=== PATIENT | male | born 1950 | race Caucasian/White ===

== ENCOUNTER 2017-09-17 06:03 | Day surgery (SDC) | payer MEDICARE ==
[2017-09-16 14:04] VITALS: BMI 30.6
--- NOTE | 2017-09-16 23:22 | HP ---
DATE OF ADMISSION: 09/17/2017 HISTORY OF PRESENT ILLNESS: This is a 66-year-old male, comes for colonoscopy, previous h istory of colon polyp. At the present time, Mr. Maldonado has no specific GI symptoms. No history of a bdominal pain or hematochezia. ALLERGIES: None. MEDICAL ILLNESSES: 1. Hypertension. 2. Gout. 3. Osteoarthritis. 4. Diabetes mellitus. 5. Hyperlipidemia. 6. Depression. 7. Sleep apnea. PHYSICAL EXAMINATION: VITAL SIGNS: Pulse is 70, blood pressure 130/80. HEENT: Conjunctivae clear. CARDIOVASCULAR: First and second heart sounds normal. LUNGS: Clear to auscultation. ABDOMEN: Soft to palpate. No organomegaly. No tenderness. No masses. EXTREMITIES: Reveal no edema. ADMITTING DIAGNOSIS: A 66-year-old male with history of colon polyp. He comes for a [facility] colonoscopy.
[2017-09-17] MEDS ORDERED: Lidocaine 1% PF 5 ML VIAL ONE (08:16)
[2017-09-17] MEDS ORDERED: Propofol 200 MG/20 ML VIAL ONE (08:16)
--- NOTE | 2017-09-17 10:57 | OP ---
DATE OF PROCEDURE: 09/17/2017 SURGEON: Daly Kendrick M.D. OPERATIVE PROCEDURE: Colonoscopy with polypectomy. PREOPERATIVE DIAGNOSIS: A 66-year-old male with history of colon polyp, undergoing follow up colonoscopy. POSTOPERATIVE DIAGNOSES: 1. Sessile ascending colon polyp close to the cecum. 1. Sessile hepatic flexure polyp. 2. Mild sigmoid diverticular disease. PROCEDURE NOTE: The patient was placed on his left lateral position and was given sedation [facility]. A rectal exam was done before the scope was advanced into the rectum. No lesions were felt on rectal exam. A Pentax video colonoscope was introduced into the rectum and advanced a ll the way into the cecum. The prep was excellent. The appendiceal orifice, ileocecal valve, and c ecum, no pathology seen. A sessile ascending colon polyp removed with snare cautery with good hemos tasis. Another sessile polyp of hepatic flexure removed with snare cautery. The transverse colon, descending colon, and sigmoid colon, no lesions. Over the sigmoid colon did show mild diverticulos is. Retroflexion of the scope in the rectum showed no pathology. DISCHARGE PLANNING: This is a 66-year-old male who came in for colonoscopy because of his tory of colon polyp. He underwent colonoscopy and polypectomy x2. DISCHARGE RECOMMENDATIONS: 1. The patient was advised to call me if he develops abdominal pain, hematochezia or fever. 2. In the absence of any other symptoms to come back to me in 2 weeks.
== END 2017-09-17 09:43 | disposition home or self-care (01) ==
LOC: SDC 06:03
PROVIDERS: ATTEND Internal Medicine Gastroenterology
PROC: 0DBK8ZX Excision of Ascending Colon, Via Natural or Artificial Opening Endoscopic, Diagnostic (ICD-10-PCS; principal; 2017-09-17)
PROC: 0DBL8ZX Excision of Transverse Colon, Via Natural or Artificial Opening Endoscopic, Diagnostic (ICD-10-PCS; 2017-09-17)
DX: Z12.11 Encounter for screening for malignant neoplasm of colon (principal); D12.2 Benign neoplasm of ascending colon; D12.3 Benign neoplasm of transverse colon; K57.30 Diverticulosis of large intestine without perforation or abscess without bleeding; I10 Essential (primary) hypertension; M10.9 Gout, unspecified; M19.90 Unspecified osteoarthritis, unspecified site; E11.9 Type 2 diabetes mellitus without complications; E78.5 Hyperlipidemia, unspecified; G47.30 Sleep apnea, unspecified; F32.9 Major depressive disorder, single episode, unspecified; Z79.84 Long term (current) use of oral hypoglycemic drugs; Z79.899 Other long term (current) drug therapy; Z90.49 Acquired absence of other specified parts of digestive tract; Z98.890 Other specified postprocedural states; Z87.19 Personal history of other diseases of the digestive system
CPT/HCPCS: 88305; J2001; J2704

== ENCOUNTER 2018-11-26 10:20 | Outpatient (CLI) | payer MEDICARE ==
--- NOTE | 2018-11-26 12:41 | RAD ---
CHEST PA AND LATERAL: 11/26/2018 10:25 a.m. HISTORY: Preoperative evaluation for back surgery. FINDINGS: The heart size is normal. The lungs are well expanded without focal areas of consolidation, pneumoth oraces, or pleural effusions. There are degenerative changes in the spine. IMPRESSION: No radiographic evidence of acute cardiopulmonary process. POS: CLYDE
== END 2018-11-26 10:21 | disposition home or self-care (01) ==
LOC: SCSRAD 10:20
PROVIDERS: ATTEND Family Medicine
DX: Z01.818 Encounter for other preprocedural examination (principal); M48.061 Spinal stenosis, lumbar region without neurogenic claudication
CPT/HCPCS: 71046

== ENCOUNTER 2018-12-09 09:15 | Outpatient (CLI) | payer MEDICARE ==
[2018-12-09 11:13] LABS: Hemoglobin 13.2 g/dL (14.0-18.0); Mean Corpuscular HGB CONC 33.8 g/dL (32.0-36.0); Mean Corpuscular Hemoglobin 28.2 pg (27.0-31.0); Mean Corpuscular Volume 83.5 fL (78.0-98.0); Mean Platelet Volume 8.5 fL (7.4-10.4); Platelet Count 209 thou/uL (130-400); RBC Distribution Width 13.4 % (11.5-14.5); Red Blood Cell (RBC) Count 4.68 mill/uL (4.70-6.10); White Blood Cell (WBC) Count 4.4 thou/uL (4.8-10.8)
[2018-12-09 11:42] LABS: Anion Gap 13 mmol/L (10-20); BUN (Urea Nitrogen) 17 mg/dL (8.4-25.7); Calc. Creatinine Clearance 0 mL/min (70-130); Calcium 10.1 mg/dL (7.8-10.44); Carbon Dioxide 21 mmol/L (23-31); Chloride 108 mmol/L (98-107); Estimated GFR-MDRD 81; Glucose 138 mg/dL (80-115); Potassium 4.4 mmol/L (3.5-5.1); Sodium 138 mmol/L (136-145)
== END 2018-12-09 09:16 | disposition home or self-care (01) ==
LOC: LABBT 09:15
PROVIDERS: ATTEND Neurological Surgery
DX: Z01.812 Encounter for preprocedural laboratory examination (principal); M43.16 Spondylolisthesis, lumbar region
CPT/HCPCS: 80048; 85027

== ENCOUNTER 2018-12-10 09:14 | Inpatient (IN) | payer MEDICARE ==
[2018-12-09 10:12] VITALS: BMI 30.4
[2018-12-22] MEDS ORDERED: Sodium Chloride 0.9% 10 ML ONE (11:16)
[2018-12-22] MEDS ORDERED: Fentanyl 100 MCG/2 ML VIAL ONE ×3 (11:30→13:31)
[2018-12-22] MEDS ORDERED: Meperidine HCl/PF 25 MG/ML VIAL SLOW IVP PRN (12:38)
[2018-12-22] MEDS ORDERED: Promethazine HCl 25 MG/ML VIAL SLOW IVP PRN ×2 (12:38→14:09)
[2018-12-22] MEDS ORDERED: HYDROmorphone 2 MG/ML VIAL SLOW IVP PRN (12:38)
[2018-12-22] MEDS ORDERED: Promethazine HCl 25 MG/ML VIAL IM PRN ×3 (12:38→14:09)
[2018-12-22] MEDS ORDERED: tiZANidine HCl 4 MG TAB PO PRN (13:42)
[2018-12-22] MEDS ORDERED: Mag-Al 1200 mg/1200 mg/30 ML UDCUP PO PRN (13:42)
[2018-12-22] MEDS ORDERED: diphenhydrAMINE 50 MG/ML VIAL IVP PRN (13:42)
[2018-12-22] MEDS ORDERED: HYDROcodone/Acetaminophen 10/325 mg Tablet PO PRN ×2 (13:42)
[2018-12-22] MEDS ORDERED: Morphine 4 MG/ML VIAL SLOW IVP PRN ×2 (13:42→13:43)
[2018-12-22] MEDS ORDERED: Milk Of Magnesia 30 ML UDCUP PO PRN (13:42)
[2018-12-22] MEDS ORDERED: Promethazine HCl 12.5 MG SUPP PR PRN (13:42)
[2018-12-22] MEDS ORDERED: Promethazine 25 MG TAB PO PRN (13:42)
[2018-12-22] MEDS ORDERED: traMADol HCl 50 MG TAB PO PRN ×2 (13:42)
[2018-12-22] MEDS ORDERED: diphenhydrAMINE 25 MG CAP PO PRN (13:42)
[2018-12-22] MEDS ORDERED: Ondansetron PF 4 MG/2 ML Vial IVP PRN (13:44)
[2018-12-22] MEDS ORDERED: HYDROmorphone 2 MG/ML VIAL ONE (13:52)
[2018-12-22] MEDS ORDERED: Ondansetron HCl/PF 4 MG/2 ML Vial IVP PRN (14:09)
[2018-12-22] MEDS ORDERED: Glycopyrrolate 0.2 MG/ML 5 ML SYRINGE ONE (15:15)
[2018-12-22] MEDS ORDERED: PHENYLEPHRINE-NS 100 MCG/ML 10 ML SYRINGE ONE (15:15)
[2018-12-22] MEDS ORDERED: Lidocaine 1% PF 5 ML VIAL ONE (15:15)
[2018-12-22] MEDS ORDERED: Ketorolac Tromethamine 30 MG/ML VIAL ONE (15:15)
[2018-12-22] MEDS ORDERED: Metoclopramide HCl 10 MG/2 ML VIAL ONE (15:15)
[2018-12-22] MEDS ORDERED: Rocuronium Bromide 10 MG/ML (10ML VIAL) ONE (15:15)
[2018-12-22] MEDS ORDERED: ePHEDrine 50 MG/ML VIAL ONE (15:15)
[2018-12-22] MEDS ORDERED: diphenhydrAMINE 50 MG/ML VIAL ONE (15:15)
[2018-12-22] MEDS ORDERED: Ondansetron PF 4 MG/2 ML Vial ONE (15:15)
[2018-12-22] MEDS ORDERED: PROPOFOL 200 MG/20 ML VIAL ONE (15:15)
--- NOTE | 2018-12-22 15:49 | OP ---
DATE OF PROCEDURE: 12/22/2018 VIDEO TAPE DUPLICATOR: Frank Barbosa PA-C. PROCEDURE PERFORMED: Left L4-L5 laminectomy, facetectomy, foraminotomy, interbody arthrodesis, intervertebral biomechanical device, local morselized autograft, demineralized bone matrix, posterolateral arthrodesis, L4-L5, pedicle screw instrumentation. DESCRIPTION OF PROCEDURE: The patient was brought to the operating room and intubated. He was rolled in a prone position on gel-filled chest rolls. The previous incision was reopened and the L4-L5 area was identified. There was copious scar in this region. After bilateral exposure, we performed left L4-L5 facetectomy, laminectomy, and foraminotomy completely decompressing left L4 within the neuro foramen and far-lateral disk herniation was identified here. After complete decompression, the disk space was incised and debrided and the bony endplates decorticated for the purpose of arthrodesis. An appropriate-sized intervertebral biomechanical PEEK device was then brought into the field, filled with demineralized bone matrix and local morselized autograft, and tapped in place securely at L4-L5. Next, pedicle screws were placed in the left L4 and left L5 using lateral fluoroscopic guidance and the position was confirmed by x-ray. The dana was secured between the screws connected by nuts, which were final tightened. The wound was then extensively irrigated and maximum hemostasis was secured. Combination of demineralized bone matrix and local morselized autograft was laid over the right lamina and posterolateral surfaces for the purpose of arthrodesis. Vancomycin powder was applied and the wound was then closed in anatomic layers. Job ID: [id number]
[2018-12-22] MEDS ORDERED: Nitroglycerin 0.4 MG TAB (25 Tab Bottle) SL PRN (17:47)
[2018-12-22] MEDS ORDERED: Dextrose 5% in Water 1,000 ML IV PRN (17:48)
[2018-12-22] MEDS ORDERED: Dextrose 50% Abboject 50 ML SYRINGE SLOW IVP PRN (17:48)
[2018-12-22] MEDS ORDERED: HumaLOG 300 UNITS/3 ML VIAL SC PRN ×2 (17:48)
[2018-12-22] MEDS: CEFAZOLIN 2 GM in Premix Bag 1 BAG IVPB SCH (17:50)
[2018-12-22] MEDS: Sodium Chloride 0.9% 1,000 ML IV SCH (17:53)
[2018-12-22] MEDS: Famotidine 20 MG TAB PO SCH (20:51)
[2018-12-22] MEDS: metFORMIN XR 500 MG TAB PO SCH (20:51)
[2018-12-22] MEDS ORDERED: Atorvastatin Calcium 20 MG TAB PO SCH (21:00)
--- NOTE | 2018-12-22 21:02 | CON ---
DATE OF CONSULTATION: PRIMARY CARE PHYSICIAN: Johnson Vital MD PRIMARY TEAM: Neurosurgery, Dr. Pacheco. REASON FOR CONSULTATION: Medical management. HISTORY OF PRESENT ILLNESS: This is a 68-year-old white male with known severe degenerative disk disease, came in for decompression with a lumbar fusion by Dr. Pacheco. He did have some allergy symptoms on his way and this morning with some congestion, stuffy nose, and sneezing, these are all cleared up. He has no other complaints. He does have chronic back pain and has some knee pain, and is supposed to get a left knee replacement after he recovers from the surgery. PAST MEDICAL HISTORY: 1. Labile blood pressure, no longer on any blood pressure medications. 2. Hyperlipidemia. 3. Diabetes mellitus type 2, controlled with metformin and diet. 4. Gout. 5. Diverticulosis of the colon. 6. Cervical spondylosis. PAST SURGICAL HISTORY: 1. Right knee replacement. 2. Cervical fusion and low back surgery x2 each. 3. Cataract surgery. 4. Tonsillectomy. 5. Appendectomy. 6. Birthmark removal. 7. Carpal tunnel surgery. 8. Vasectomy. 9. Heart catheterization, echo, and carotid Doppler. 10. Right hand surgery. 11. Sinus surgery. 12. Colonoscopy with polypectomy. SOCIAL HISTORY: The patient quit smoking in 1984. No alcohol or illicit drug use. He is , lives with his . ALLERGIES: NO KNOWN DRUG ALLERGIES. FAMILY HISTORY: Father at 67 years old of a lung cancer. Mother at 88 years old of cardiovascular disease. MEDICATIONS: 1. Nitroglycerin as needed. 2. Atorvastatin 20 mg at night. 3. Metformin 1000 mg twice a day. 4. Lexapro 20 mg daily. 5. Fenofibrate 67 mg daily. 6. Glimepiride 4 mg daily. 7. Romney as needed. REVIEW OF SYSTEMS: CONSTITUTIONAL: No fevers, no chills. EYES: No double vision or blurred vision. ENT: See HPI. No sore throat. CARDIOVASCULAR: No chest pain. No palpitations or racing heart. PULMONARY: He had some coughing, wheezing with the sneezing this morning, this is resolved. No chest tightness or trouble breathing. GASTROINTESTINAL: No abdominal pain. No nausea or vomiting. No diarrhea or constipation. GENITOURINARY: No dysuria or hematuria. MUSCULOSKELETAL: He has chronic low back pain and has chronic left knee pain. SKIN: No rashes or other lesions noted. NEUROLOGIC: He has had some tingling in his feet. This is chronic from his diabetes. PHYSICAL EXAMINATION: VITAL SIGNS: Blood pressure 128/73, pulse 72, respirations 18, O2 saturation 95 % on room air, temperature 98.2. GENERAL: This is a well-developed, obese white male, in no acute distress. HEENT: Pupils are equal, round, and reactive to light. Oropharynx is clear without lesions, erythema, or exudate. NECK: Supple. No lymphadenopathy. No thyroid nodules or enlargement. No JVD. HEART: Regular rate and rhythm. No murmurs, rubs, or gallops. LUNGS: Clear to auscultation bilaterally. No wheezes, crackles, rhonchi. ABDOMEN: Soft, nontender to palpation. Normoactive bowel sounds. No hepatosplenomegaly or other masses. EXTREMITIES: No clubbing, cyanosis, or edema. SKIN: No rashes or other lesions noted. NEUROLOGIC: He has intact sensation and strength in all extremities. No facial droop. LABORATORY DATA: Lab done preoperatively a week and a half ago, shows a white blood cell count of 4.4, hemoglobin 13.2, hematocrit 39.1, platelet count 209. Basic metabolic panel with a chloride of 108, carbon dioxide 21, glucose 138. The rest is normal. ASSESSMENT: 1. Degenerative disk disease of the lumbar spine status post lumbar decompression and fusion, doing well postoperatively. 2. Labile blood pressure, not requiring blood pressure medications at home. We will monitor closely. Currently, blood pressure is normal. 3. Diabetes mellitus type 2. We will resume patient's oral hypoglycemics and check a fingerstick blood sugar before meals and at bedtime, and we will put him on low insulin sliding scale. We will change his diet to a controlled carbohydrate diet. 4. Gastrointestinal prophylaxis. We will put the patient on Pepcid twice a day. 5. Deep venous thrombosis prophylaxis per Neurosurgery. 6. Code status. I did discuss this with the patient, he is a full code. Should he be incapacitated, his medical decision maker would be his . Her name is Pedro Maldonado. Job ID: [id number] MTDD
[2018-12-23] MEDS: CEFAZOLIN 2 GM in Premix Bag 1 BAG IVPB SCH (01:20)
[2018-12-23] MEDS: Sodium Chloride 0.9% 1,000 ML IV SCH (06:28)
[2018-12-23] MEDS ORDERED: Glimepiride 4 MG TAB PO SCH (07:30)
[2018-12-23] MEDS ORDERED: Escitalopram Oxalate 20 mg Tablet PO SCH (09:00)
[2018-12-23] MEDS ORDERED: Fenofibrate 48 MG TAB PO SCH (09:00)
[2018-12-23] MEDS: metFORMIN XR 500 MG TAB PO SCH (09:04)
[2018-12-23] MEDS: Famotidine 20 MG TAB PO SCH ×2 (09:04→09:05)
--- NOTE | 2018-12-23 09:07 | PDOC.PN ---
- Subjective Encounter Start Date: 12/23/18 - Objective Resuscitation Status - Order Detail: 12/22/18 17:49 Resuscitation Status Routine Resuscitation Status: FULL: Full Resuscitation Discussed with: Patient NATHALIA Reviewed: Yes Vital Signs & Weight: Vital Signs (12 hours) Temp Pulse Resp BP Pulse Ox 12/23/18 07:37 98 F 77 22 H 141/80 H 99 12/23/18 03:52 97.5 F L 64 16 116/71 99 12/22/18 23:37 97.5 F L 73 16 124/76 96 Weight Weight 250 lb I&O: 12/22/18 12/23/18 12/24/18 06:59 06:59 06:59 Intake Total 1000 Output Total 1200 Balance -200 Additional Labs: Accuchecks 12/23/18 12/22/18 05:47 20:36 POC Glucose 113 H 119 H Dx/Plan (1) Degenerative joint disease (DJD) of lumbar spine Code(s): M47.816 - SPONDYLOSIS W/O MYELOPATHY OR RADICULOPATHY, LUMBAR REGION Status: Acute Comment: s/p decompression and fusion (2) Labile blood pressure Code(s): R09.89 - OTH SYMPTOMS AND SIGNS INVOLVING THE CIRC AND RESP SYSTEMS Status: Chronic Comment: well controlled (3) Diabetes mellitus type 2 in obese Code(s): E11.69 - TYPE 2 DIABETES MELLITUS WITH OTHER SPECIFIED COMPLICATION; E66.9 - OBESITY, UNSPECIFIED Status: Chronic Comment: well controlled on home meds - Plan cont current plan of care, PT/OT disposition per neurosurgery * .
[2018-12-23 11:38] VITALS: BP 144/78; TEMP 98.1
--- NOTE | 2018-12-23 11:53 | DIS ---
DATE OF ADMISSION: 12/22/2018 DATE OF DISCHARGE: 12/23/2018 HISTORY OF PRESENT ILLNESS: The patient is a 68-year-old male, status post L4-L5 decompression and fusion. Following the procedure, he was transitioned to the Med/Surg floor where his pain was well controlled with p.o. medications, he was tolerating a regular diet, and voiding appropriately. He has been ambulating easily throughout the department. He is awake, alert, in no acute distress. He has free active range of motion of all extremities, 5/5 strength throughout. Sensation intact to light touch. Dressing is dry. Incision is intact. We will plan to dismiss the patient to home. I discussed home care precautions. We will follow up in 2 weeks. Job ID: [id number]
== END 2018-12-23 11:33 | disposition home or self-care (01) | DRG 460 ==
LOC: SURG A 12-22 08:01 → SURG B 12-22 16:09 → EDSTATUS 12-22 09:53
PROVIDERS: ADMIT Neurological Surgery; ATTEND Neurological Surgery
PROC: 0SG00AJ Fusion of Lumbar Vertebral Joint with Interbody Fusion Device, Posterior Approach, Anterior Column, Open Approach (ICD-10-PCS; principal; 2018-12-22)
DX: M51.36 Other intervertebral disc degeneration, lumbar region (principal); E78.5 Hyperlipidemia, unspecified; E11.9 Type 2 diabetes mellitus without complications; M10.9 Gout, unspecified; Z96.651 Presence of right artificial knee joint; Z98.1 Arthrodesis status; Z98.49 Cataract extraction status, unspecified eye; Z90.49 Acquired absence of other specified parts of digestive tract; Z98.52 Vasectomy status; Z98.890 Other specified postprocedural states; Z87.891 Personal history of nicotine dependence; Z79.84 Long term (current) use of oral hypoglycemic drugs
CPT/HCPCS: 36416; 76000; C1713; C1768; J0131; J1170; J1200; J1885; J2001; J2405; J2704; J2765; J3010; J3370; J3490

== ENCOUNTER 2019-01-07 15:45 | Outpatient (CLI) | payer MEDICARE ==
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
== END 2019-01-07 15:46 | disposition home or self-care (01) ==
LOC: TBSIIMAG 15:45
PROVIDERS: ATTEND Neurological Surgery
DX: M54.9 Dorsalgia, unspecified (principal); M43.16 Spondylolisthesis, lumbar region; Z98.890 Other specified postprocedural states
CPT/HCPCS: 72100

== ENCOUNTER 2019-02-25 13:37 | Outpatient (CLI) | payer MEDICARE ==
--- NOTE | 2019-02-25 13:59 | RAD ---
Exam: 2 views lumbar spine COMPARISON: 01/07/2019 HISTORY: follow-up lumbar fusion surgery FINDINGS: Redemonstration of unilateral left-sided transpedicular screw at L4 and L5. No perihardware lucency. There is a disc prosthesis at L4-L5. Stable 6.7 mm of anterolisthesis of L4 upon L5. Stable loss of disc space height and osteophyte formation. IMPRESSION: Stable lumbar fusion.
== END 2019-02-25 13:38 | disposition home or self-care (01) ==
LOC: TBSIIMAG 13:37
PROVIDERS: ATTEND Neurological Surgery
DX: M54.16 Radiculopathy, lumbar region (principal); Z98.1 Arthrodesis status
CPT/HCPCS: 72100

== ENCOUNTER 2019-05-19 15:50 | Outpatient (CLI) | payer MEDICARE ==
--- NOTE | 2019-05-19 16:20 | RAD ---
LUMBAR SPINE TWO VIEW: 05/19/18 HISTORY: M54.16 COMPARISON: Radiograph 02/25/19. FINDINGS: Similar appearance to the left unilateral posterior spinal fusion hardware L4-5. Anterolisthesis is u nchanged. No migration of the discectomy cage. No acute superimposed fracture or malalignment. Multilevel degenerative disc space height loss. Multi level laminectomies. IMPRESSION: Unchanged postoperative appearance. POS: HOME
== END 2019-05-19 15:51 | disposition home or self-care (01) ==
LOC: TBSIIMAG 15:50
PROVIDERS: ATTEND Neurological Surgery
DX: M54.16 Radiculopathy, lumbar region (principal); Z98.1 Arthrodesis status
CPT/HCPCS: 72100

== ENCOUNTER 2020-10-03 10:13 | Outpatient (CLI) | payer MEDICARE | END 2020-10-03 10:14 | disposition home or self-care (01) | LOC: DTY/OP 10:13 | PROVIDERS: ATTEND Family Medicine | DX: E11.9 Type 2 diabetes mellitus without complications (principal) | CPT/HCPCS: 97802 ==

== ENCOUNTER 2021-01-02 18:03 | Emergency (ER) | payer MEDICARE ==
[~2021-01-02 18:03] MED LIST: Iopamidol-370 76% 500 ML 1 ML ONE
[2021-01-02 18:43] LABS: #Basophils 0.1 thou/uL (0.0-0.2); #Eosinphils 0.2 thou/uL (0.0-0.7); #Lymphocytes 1.8 thou/uL (1.20-3.40); #Monocytes 0.8 thou/uL (0.11-0.59); #Neutrophils 2.8 thou/uL (1.40-6.50); %Basophils 1.5 % (0.0-1.0); %Eosinophils 3.4 % (0.0-10.0); %Lymphocytes 32.5 % (21.0-51.0); %Neutrophils 48.6 % (42.0-75.0); Hemoglobin 12.3 g/dL (14.0-18.0); Mean Corpuscular HGB CONC 34.5 g/dL (32.0-36.0); Mean Corpuscular Hemoglobin 28.7 pg (27.0-31.0); Mean Corpuscular Volume 83.2 fL (78.0-98.0); Mean Platelet Volume 8.6 fL (7.4-10.4); Platelet Count 178 thou/uL (130-400); RBC Distribution Width 12.1 % (11.5-14.5); Red Blood Cell (RBC) Count 4.27 mill/uL (4.70-6.10); White Blood Cell (WBC) Count 5.7 thou/uL (4.8-10.8)
[2021-01-02 19:01] LABS: ALT (SGPT) 27 U/L (8-55); AST (SGOT) 25 U/L (5-34); Albumin 4.3 g/dL (3.4-4.8); Alkaline Phosphatase 44 U/L (40-110); Anion Gap 14 mmol/L (10-20); BUN (Urea Nitrogen) 24 mg/dL (8.4-25.7); Bilirubin, Total 0.5 mg/dL (0.2-1.2); Calc. Creatinine Clearance 0 mL/min (70-130); Calcium 9.2 mg/dL (7.8-10.44); Carbon Dioxide 24 mmol/L (23-31); Chloride 104 mmol/L (98-107); Globulin 3.3 g/dL (2.4-3.5); Glucose 131 mg/dL (80-115); Potassium 3.9 mmol/L (3.5-5.1); Protein, Total 7.6 g/dL (5.8-8.1); Sodium 138 mmol/L (136-145)
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
[2021-01-02] MEDS ORDERED: Morphine 4 MG/ML VIAL ONE (20:33)
[2021-01-02] MEDS ORDERED: Ondansetron PF 4 MG/2 ML Vial ONE (20:33)
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
== END 2021-01-02 21:21 | disposition home or self-care (01) ==
LOC: ERS 18:03
DX: S00.03XA Contusion of scalp, initial encounter (principal); M54.2 Cervicalgia; M51.36 Other intervertebral disc degeneration, lumbar region; N40.0 Benign prostatic hyperplasia without lower urinary tract symptoms; E11.9 Type 2 diabetes mellitus without complications; Z87.891 Personal history of nicotine dependence; V49.40XA Driver injured in collision with unspecified motor vehicles in traffic accident, initial encounter
CPT/HCPCS: 70450; 71045; 71260; 72125; 74177; 80053; 85025; 96374; 96375; J2270; J2405; Q9967

== ENCOUNTER 2021-08-22 08:00 | Inpatient (IN) | payer MEDICARE ==
[2021-08-22 09:14] LABS: Hemoglobin 12.1 g/dL (13.5-17.5); Mean Corpuscular HGB CONC 33.6 g/dL (32.0-36.0); Mean Corpuscular Hemoglobin 27.9 pg (27.0-33.0); Mean Corpuscular Volume 83.1 fl (81.2-95.1); Mean Platelet Volume 10.9 fl (7.4-10.4); Platelet Count 207 10x3/uL (150-450); Red Blood Cell (RBC) Count 4.33 10x6/uL (4.32-5.72)
[2021-08-22 09:31] LABS: Anion Gap 14 mmol/L (10-20); BUN (Urea Nitrogen) 21 mg/dL (8.4-25.7); Calc. Creatinine Clearance 0 mL/min (70-130); Carbon Dioxide 22 mmol/L (23-31); Chloride 107 mmol/L (98-107); Glucose 91 mg/dL (80-115); Potassium 4.1 mmol/L (3.5-5.1); Sodium 139 mmol/L (136-145)
[2021-08-22 22:56] LABS: SARS-CoV-2 PCR by NAA Not Detected (NotDetected)
[2021-08-25] MEDS ORDERED: ceFAZolin 2 GM/DEX 5% 100 ML BAG ONE (06:10)
[2021-08-25] MEDS ORDERED: Albumin 5% 500 ML ONE (06:25)
[2021-08-25] MEDS ORDERED: Calcium Chloride 1 GM/10 ML Abboject SYRINGE ONE (06:26)
[2021-08-25] MEDS ORDERED: Mannitol 12.5 GM/50 ML ONE (06:26)
[2021-08-25] MEDS ORDERED: PROPOFOL 200 MG/20 ML VIAL ONE (06:26)
[2021-08-25] MEDS ORDERED: Protamine Sulfate 250 MG/25 ML VIAL ONE (06:26)
[2021-08-25] MEDS ORDERED: Heparin 30,000 units/30 ml VIAL ONE (06:26)
[2021-08-25] MEDS ORDERED: Magnesium Sulfate 1 GM/2 ML VIAL ONE (06:26)
[2021-08-25] MEDS ORDERED: Aminocaproic Acid 5 GM/20 ML VIAL ONE (06:26)
[2021-08-25] MEDS ORDERED: Thrombin 5000 UNITS/5 ML VIAL ONE (06:26)
[2021-08-25] MEDS ORDERED: Heparin 5,000 UNITS/ML VIAL ONE (06:26)
[2021-08-25] MEDS ORDERED: Papaverine 60 MG/2 ML VIAL ONE (06:26)
[2021-08-25] MEDS ORDERED: Lidocaine 2% PF 100 mg/5 ml Syringe ONE (06:26)
[2021-08-25] MEDS ORDERED: Potassium Chloride 60 MEQ/30 ML VIAL ONE (06:26)
[2021-08-25] MEDS ORDERED: Cardioplegic Soln 1,000 ML BAG ONE (06:26)
[2021-08-25] MEDS ORDERED: Sodium Bicarb 50 MEQ/50 ML Abboject 8.4% SYRINGE ONE (06:26)
[2021-08-25] MEDS ORDERED: Vecuronium 10 MG VIAL ONE (06:26)
[2021-08-25] MEDS ORDERED: Ondansetron PF 4 MG/2 ML Vial ONE (06:26)
[2021-08-25] MEDS ORDERED: Fentanyl 250 MCG/5 ML VIAL ONE (06:37)
[2021-08-25] MEDS ORDERED: Midazolam HCl 5 mg/5 ml Vial ONE (06:37)
[2021-08-25] MEDS ORDERED: Heparin 10,000 UNITS/1 ML VIAL 30,000 UNITS in Sodium Chloride 0.9% 1,000 ML FS SCH (06:45)
[2021-08-25] MEDS ORDERED: Midazolam HCl 2 mg/2 ml Vial ONE (07:05)
[2021-08-25] MEDS ORDERED: PHENYLEPHRINE-NS 100 MCG/ML 10 ML SYRINGE ONE (08:26)
[2021-08-25] MEDS ORDERED: Insulin Regular 300 UNITS/3 ML VIAL ONE (09:21)
[2021-08-25] MEDS ORDERED: Morphine 2 MG/ML VIAL SLOW IVP PRN (10:44)
[2021-08-25] MEDS ORDERED: Norepinephrine 8 MG/0.9% NS 250 ML IVPB PRN (10:44)
[2021-08-25] MEDS ORDERED: Hetastarch 6% 500 ML 500 ML IVPB PRN (10:44)
[2021-08-25] MEDS ORDERED: Acetaminophen 325 MG TAB PO PRN (10:44)
[2021-08-25] MEDS ORDERED: Fentanyl 100 MCG/2 ML VIAL SLOW IVP PRN ×2 (10:44)
[2021-08-25] MEDS ORDERED: Post-Op Insulin Drip Protocol IVPB ONE (10:44)
[2021-08-25] MEDS ORDERED: Promethazine HCl 25 MG/ML VIAL IM PRN (10:44)
[2021-08-25] MEDS ORDERED: hydrALAZINE 20 MG/ML VIAL SLOW IVP PRN (10:44)
[2021-08-25] MEDS ORDERED: Bisacodyl 10 MG SUPP PR PRN (10:44)
[2021-08-25] MEDS ORDERED: Mag-Al 1200 mg/1200 mg/30 ML UDCUP PO PRN (10:44)
[2021-08-25] MEDS ORDERED: Guaifenesin DM 100-10/5 ML UDCUP PO PRN (10:44)
[2021-08-25] MEDS ORDERED: Ondansetron PF 4 MG/2 ML Vial IVP PRN (10:44)
[2021-08-25] MEDS ORDERED: DOPamine 400 MG/D5W 250 ML 250 ML IVPB PRN (10:44)
[2021-08-25] MEDS ORDERED: Bisacodyl 5 MG TAB PO PRN (10:44)
[2021-08-25] MEDS ORDERED: Potassium Chloride 20 MEQ/100 ML PREMIX BAG IVPB PRN (10:44)
[2021-08-25 10:50] VITALS: BMI 29.2
[2021-08-25 10:55] LABS: #Eosinphils 0.1 thou/uL (0.0-0.7); #Monocytes 0.7 thou/uL (0.11-0.59); #Neutrophils 4.5 thou/uL (1.40-6.50); %Basophils 0.6 % (0.0-1.0); %Eosinophils 1.3 % (0.0-10.0); %Lymphocytes 15.6 % (21.0-51.0); %Monocytes 11.3 % (0.0-10.0); %Neutrophils 71.2 % (42.0-75.0); Hemoglobin 9.5 g/dL (14.0-18.0); Mean Corpuscular HGB CONC 34.2 g/dL (32.0-36.0); Mean Corpuscular Hemoglobin 29.4 pg (27.0-31.0); Mean Platelet Volume 8.6 fL (7.4-10.4); Platelet Count 130 thou/uL (130-400); RBC Distribution Width 12.8 % (11.5-14.5); Red Blood Cell (RBC) Count 3.24 mill/uL (4.70-6.10); White Blood Cell (WBC) Count 6.3 thou/uL (4.8-10.8)
[2021-08-25] MEDS ORDERED: Morphine 4 MG/ML VIAL ONE (11:02)
[2021-08-25] MEDS: Nitroglycerin 50 MG/250 ML BOT 250 ML IVPB PRN ×2 (11:09→21:37)
[2021-08-25 11:13] LABS: INR-International Normal Ratio 1.3; PTT 47.3 sec (22.9-36.1); Prothrombin Time 16.3 sec (12.0-14.7)
[2021-08-25] MEDS ORDERED: HUMULIN R 100 UNITS in Sodium Chloride 0.9% 100 ML IVPB SCH (11:15)
[2021-08-25] MEDS ORDERED: Dextrose 5% in Water 1,000 ML IV PRN (11:15)
[2021-08-25] MEDS ORDERED: Insulin Regular 300 UNITS/3 ML VIAL SC PRN (11:15)
[2021-08-25] MEDS: Lactated Ringer's 1,000 ML IV SCH (11:15)
[2021-08-25] MEDS ORDERED: Dextrose 50% Abboject 50 ML SYRINGE SLOW IVP PRN (11:15)
[2021-08-25] MEDS: Ketorolac Tromethamine 30 MG/ML VIAL IVP SCH ×2 (11:21→17:00)
[2021-08-25 11:24] LABS: Anion Gap 12 mmol/L (10-20); BUN (Urea Nitrogen) 21 mg/dL (8.4-25.7); Calc. Creatinine Clearance 112 mL/min (70-130); Calcium 8.9 mg/dL (7.8-10.44); Carbon Dioxide 21 mmol/L (23-31); Chloride 110 mmol/L (98-107); Glucose 134 mg/dL (80-115); Potassium 3.9 mmol/L (3.5-5.1); Sodium 139 mmol/L (136-145)
[2021-08-25] MEDS ORDERED: Potassium Chloride 20 MEQ in Premix Bag 1 BAG IVPB PRN (11:25)
[2021-08-25 11:26] LABS: Actual Bicarbonate (HCO3a) 24.2 mEq/L (22-28); Base Excess (BEa) -2.1 mEq/L (-2.0 to +3.0); CO2 Tension 48.1 mmHg (35.0-45.0); Carboxyhemoglobin (COHb) 0.3 gm% (0.0-3.0); Hemoglobin (Hb) 10.1 g/dL (14.0-18.0); O2 Tension (PaO2), arterial 71.7 mmHg (> 70.0); Potassium - ABG Lab 3.84 mmol/L (3.70-5.30); pH, Arterial 7.32 (7.35-7.45)
[2021-08-25 11:27] LABS: ALV-art Gradient 224.675 mmHg (0-20); Puncture Site Arterial Line
[2021-08-25] MEDS ORDERED: Morphine 4 MG/ML VIAL SLOW IVP PRN (11:30)
[2021-08-25] MEDS ORDERED: CEFAZOLIN 2 GM in Premix Bag 1 BAG IVPB SCH (14:00)
[2021-08-25 14:01] LABS: Glucose 187 mg/dL (80-115)
[2021-08-25] MEDS: CEFAZOLIN 2 GM in Sodium Chloride 0.9% 100 ML IVPB SCH ×2 (15:00→21:02)
[2021-08-25 16:28] LABS: Hemoglobin 10.4 g/dL (14.0-18.0)
[2021-08-25] MEDS: HYDROcodone/Acetaminophen 5/325 mg Tablet PO PRN ×2 (17:00→21:01)
[2021-08-25] MEDS ORDERED: Famotidine/PF 20 mg/2ml Vial SLOW IVP SCH (21:00)
[2021-08-25] MEDS: niCARdipine 25 MG in Sodium Chloride 0.9% 250 ML 250 ML IVPB PRN (23:51)
[2021-08-26] MEDS: Ketorolac Tromethamine 30 MG/ML VIAL IVP SCH ×5 (00:06→23:53)
[2021-08-26] MEDS: Lactated Ringer's 1,000 ML IV SCH (00:10)
[2021-08-26 03:38] LABS: #Lymphocytes 0.6 thou/uL (1.20-3.40); #Monocytes 0.9 thou/uL (0.11-0.59); #Neutrophils 6.9 thou/uL (1.40-6.50); %Basophils 0.1 % (0.0-1.0); %Eosinophils 0.1 % (0.0-10.0); %Monocytes 10.4 % (0.0-10.0); %Neutrophils 82.4 % (42.0-75.0); Hemoglobin 10.4 g/dL (14.0-18.0); Mean Corpuscular HGB CONC 34.2 g/dL (32.0-36.0); Mean Corpuscular Hemoglobin 29.4 pg (27.0-31.0); Mean Corpuscular Volume 86.1 fL (78.0-98.0); Mean Platelet Volume 8.8 fL (7.4-10.4); Platelet Count 160 thou/uL (130-400); RBC Distribution Width 12.9 % (11.5-14.5); Red Blood Cell (RBC) Count 3.52 mill/uL (4.70-6.10); White Blood Cell (WBC) Count 8.4 thou/uL (4.8-10.8)
[2021-08-26] MEDS: niCARdipine 25 MG in Sodium Chloride 0.9% 250 ML 250 ML IVPB PRN (03:48)
[2021-08-26 04:20] LABS: Anion Gap 14 mmol/L (10-20); BUN (Urea Nitrogen) 19 mg/dL (8.4-25.7); Calc. Creatinine Clearance 128 mL/min (70-130); Calcium 8.4 mg/dL (7.8-10.44); Carbon Dioxide 21 mmol/L (23-31); Chloride 105 mmol/L (98-107); Glucose 136 mg/dL (80-115); Potassium 3.9 mmol/L (3.5-5.1); Sodium 136 mmol/L (136-145)
[2021-08-26] MEDS: CEFAZOLIN 2 GM in Sodium Chloride 0.9% 100 ML IVPB SCH (05:29)
[2021-08-26] MEDS ORDERED: Dextrose 50% Abboject 50 ML SYRINGE SLOW IVP PRN (06:34)
[2021-08-26] MEDS ORDERED: Dextrose 5% in Water 1,000 ML IV PRN (06:34)
[2021-08-26] MEDS: Fenofibrate Nanocrystallized 145 MG TAB PO SCH (08:02)
[2021-08-26] MEDS: Polyethylene Glycol 3350 17 GM Packet PO SCH (08:02)
[2021-08-26] MEDS: Glimepiride 4 MG TAB PO SCH (08:02)
[2021-08-26] MEDS: Potassium Chloride 10 MEQ TAB PO SCH (08:03)
[2021-08-26] MEDS: Cyanocobalamin (Vitamin B-12) 1,000 MCG TAB PO SCH (08:03)
[2021-08-26] MEDS: Escitalopram Oxalate 20 mg Tablet PO SCH (08:03)
[2021-08-26] MEDS: Metoprolol Tartrate 25 MG TAB PO SCH ×2 (08:04→21:51)
[2021-08-26] MEDS: Tamsulosin HCl 0.4 MG CAP PO SCH (08:06)
[2021-08-26] MEDS: Furosemide 40 MG TAB PO SCH (08:06)
[2021-08-26] MEDS: Finasteride 5 MG TAB PO SCH (08:06)
[2021-08-26] MEDS: Lisinopril 5 MG TAB PO SCH (08:06)
[2021-08-26] MEDS: HumaLOG 300 UNITS/3 ML VIAL SC PRN ×3 (08:28→18:14)
[2021-08-26] MEDS ORDERED: Aspirin 325 MG TAB PO SCH (09:00)
[2021-08-26] MEDS ORDERED: Ubidecarenone 50 MG CAP PO SCH (09:00)
[2021-08-26] MEDS ORDERED: FLU VACC QS2021-22(65YR UP)/PF 240 MCG/0.7 ML SYRINGE IM ONE (09:00)
[2021-08-26] MEDS ORDERED: [UNRECOGNIZED DRUG - MIXTURE] PO SCH (09:00)
[2021-08-26] MEDS: HYDROcodone/Acetaminophen 5/325 mg Tablet PO PRN ×2 (09:07→15:56)
[2021-08-26] MEDS ORDERED: Nitroglycerin 0.4 MG TAB (25 Tab Bottle) SL PRN (14:34)
[2021-08-26] MEDS ORDERED: Mag-Al 1200 mg/1200 mg/30 ML UDCUP PO PRN (14:34)
[2021-08-26] MEDS ORDERED: Mineral Oil ENEMA PR PRN (14:34)
[2021-08-26] MEDS ORDERED: Guaifenesin DM 100-10/5 ML UDCUP PO PRN (14:34)
[2021-08-26] MEDS ORDERED: Bisacodyl 10 MG SUPP PR PRN (14:34)
[2021-08-26] MEDS ORDERED: Milk Of Magnesia 30 ML UDCUP PO PRN (14:34)
[2021-08-26] MEDS ORDERED: Zolpidem Tartrate 5 MG TAB PO PRN (14:34)
[2021-08-26] MEDS ORDERED: diphenhydrAMINE 25 MG CAP PO PRN (14:34)
[2021-08-26] MEDS ORDERED: Bisacodyl 5 MG TAB PO PRN (14:34)
[2021-08-26] MEDS ORDERED: Insulin Regular 300 UNITS/3 ML VIAL SC PRN (15:00)
[2021-08-26] MEDS: Atorvastatin Calcium 40 MG TAB PO SCH (21:51)
[2021-08-27] MEDS ORDERED: cefTRIAXone\\ROCEPHIN 1 GM in Sodium Chloride 0.9% 100 ML IVPB SCH (02:00)
[2021-08-27] MEDS ORDERED: Sodium Chloride 0.9% 1,000 ML IV SCH (02:00)
[2021-08-27] MEDS: Diltiazem HCl 125 MG, Admixture Fee 1 EACH in Sodium Chloride 0.9% 100 ML IVPB SCH (02:49)
[2021-08-27] MEDS ORDERED: VANCOMYCIN 2 GRAM/400 ML BAG 2 GM in Premix Bag 1 BAG IVPB SCH (03:00)
[2021-08-27] MEDS: Ketorolac Tromethamine 30 MG/ML VIAL IVP SCH ×2 (06:10→13:29)
[2021-08-27] MEDS: Aspirin 325 mg Enteric Coated Tablet PO SCH (09:15)
[2021-08-27] MEDS: Potassium Chloride 10 MEQ TAB PO SCH (09:15)
[2021-08-27] MEDS: Finasteride 5 MG TAB PO SCH (09:15)
[2021-08-27] MEDS: Glimepiride 4 MG TAB PO SCH (09:15)
[2021-08-27] MEDS: Cyanocobalamin (Vitamin B-12) 1,000 MCG TAB PO SCH (09:15)
[2021-08-27] MEDS: Furosemide 40 MG TAB PO SCH (09:15)
[2021-08-27] MEDS: Fenofibrate Nanocrystallized 145 MG TAB PO SCH (09:15)
[2021-08-27] MEDS: Lisinopril 5 MG TAB PO SCH (09:15)
[2021-08-27] MEDS: Escitalopram Oxalate 20 mg Tablet PO SCH (09:15)
[2021-08-27] MEDS: Polyethylene Glycol 3350 17 GM Packet PO SCH (09:16)
[2021-08-27] MEDS: Tamsulosin HCl 0.4 MG CAP PO SCH (09:16)
[2021-08-27] MEDS: Metoprolol Tartrate 25 MG TAB PO SCH ×2 (09:16→21:44)
[2021-08-27] MEDS: HYDROcodone/Acetaminophen 5/325 mg Tablet PO PRN (11:31)
[2021-08-27] MEDS ORDERED: Enoxaparin Sodium 40 MG/0.4 ML SYRINGE SC SCH (14:30)
[2021-08-27] MEDS: Atorvastatin Calcium 40 MG TAB PO SCH (21:44)
[2021-08-27] MEDS: Enoxaparin Sodium 40 MG/0.4 ML SYRINGE SC SCH (21:44)
[2021-08-28] MEDS: Diltiazem HCl 125 MG, Admixture Fee 1 EACH in Sodium Chloride 0.9% 100 ML IVPB SCH (05:53)
[2021-08-28] MEDS: Fenofibrate Nanocrystallized 145 MG TAB PO SCH (08:25)
[2021-08-28] MEDS: Glimepiride 4 MG TAB PO SCH (08:26)
[2021-08-28] MEDS: Furosemide 40 MG TAB PO SCH (08:27)
[2021-08-28] MEDS: Escitalopram Oxalate 20 mg Tablet PO SCH (08:27)
[2021-08-28] MEDS: Potassium Chloride 10 MEQ TAB PO SCH (08:27)
[2021-08-28] MEDS: Lisinopril 5 MG TAB PO SCH (08:28)
[2021-08-28] MEDS: Finasteride 5 MG TAB PO SCH (08:29)
[2021-08-28] MEDS: Metoprolol Tartrate 25 MG TAB PO SCH ×2 (08:29→21:35)
[2021-08-28] MEDS: Tamsulosin HCl 0.4 MG CAP PO SCH (08:29)
[2021-08-28] MEDS: Cyanocobalamin (Vitamin B-12) 1,000 MCG TAB PO SCH (08:29)
[2021-08-28] MEDS: Polyethylene Glycol 3350 17 GM Packet PO SCH (08:30)
[2021-08-28] MEDS: Enoxaparin Sodium 40 MG/0.4 ML SYRINGE SC SCH ×2 (08:30→21:36)
[2021-08-28] MEDS: Aspirin 325 mg Enteric Coated Tablet PO SCH (08:37)
[2021-08-28] MEDS: HumaLOG 300 UNITS/3 ML VIAL SC PRN (11:20)
[2021-08-28 14:20] LABS: Actual Bicarbonate (HCO3a) 23.5 mEq/L (22-28); Analyzer IN Cardio OR; Base Excess (BEa) -2.3 mEq/L (-2.0 to +3.0); CO2 Tension 44.6 mmHg (35.0-45.0); Carboxyhemoglobin (COHb) 0.7 gm% (0.0-3.0); Hemoglobin (Hb) 9.5 g/dL (14.0-18.0); O2 Tension (PaO2), arterial 101.1 mmHg (> 70.0); Potassium - ABG Lab 3.62 mmol/L (3.70-5.30); pH, Arterial 7.34 (7.35-7.45)
[2021-08-28 14:21] LABS: Actual Bicarbonate (HCO3a) 22.6 mEq/L (22-28); Analyzer IN Cardio OR; Base Excess (BEa) -2.6 mEq/L (-2.0 to +3.0); CO2 Tension 40.5 mmHg (35.0-45.0); Calcium, Ionized (arterial) 1.26 mmol/L (1.12-1.30); Carboxyhemoglobin (COHb) 0.9 gm% (0.0-3.0); Hemoglobin (Hb) 8.1 g/dL (14.0-18.0); O2 Tension (PaO2), arterial 145.5 mmHg (> 70.0); Potassium - ABG Lab 3.62 mmol/L (3.70-5.30); pH, Arterial 7.36 (7.35-7.45)
[2021-08-28 14:21] LABS: Actual Bicarbonate (HCO3a) 23.5 mEq/L (22-28); Analyzer IN Cardio OR; Base Excess (BEa) -0.6 mEq/L (-2.0 to +3.0); CO2 Tension 35.9 mmHg (35.0-45.0); Calcium, Ionized (arterial) 1.04 mmol/L (1.12-1.30); Carboxyhemoglobin (COHb) 0.6 gm% (0.0-3.0); Hemoglobin (Hb) 7.9 g/dL (14.0-18.0); O2 Tension (PaO2), arterial 384.1 mmHg (> 70.0); Potassium - ABG Lab 4.68 mmol/L (3.70-5.30); pH, Arterial 7.43 (7.35-7.45)
[2021-08-28 14:21] LABS: Actual Bicarbonate (HCO3a) 23.4 mEq/L (22-28); Analyzer IN Cardio OR; Base Excess (BEa) -0.6 mEq/L (-2.0 to +3.0); CO2 Tension 35.6 mmHg (35.0-45.0); Calcium, Ionized (arterial) 1.02 mmol/L (1.12-1.30); Carboxyhemoglobin (COHb) 0.4 gm% (0.0-3.0); Hemoglobin (Hb) 8.8 g/dL (14.0-18.0); O2 Tension (PaO2), arterial 375.7 mmHg (> 70.0); Potassium - ABG Lab 4.26 mmol/L (3.70-5.30); pH, Arterial 7.44 (7.35-7.45)
[2021-08-28 14:22] LABS: Actual Bicarbonate (HCO3a) 22.2 mEq/L (22-28); Analyzer IN Cardio OR; Base Excess (BEa) -4.1 mEq/L (-2.0 to +3.0); CO2 Tension 45.9 mmHg (35.0-45.0); Calcium, Ionized (arterial) 1.16 mmol/L (1.12-1.30); Carboxyhemoglobin (COHb) 0.3 gm% (0.0-3.0); Hemoglobin (Hb) 10.5 g/dL (14.0-18.0); O2 Tension (PaO2), arterial 103.9 mmHg (> 70.0); Potassium - ABG Lab 3.93 mmol/L (3.70-5.30)
[2021-08-28 14:22] LABS: Actual Bicarbonate (HCO3a) 23.6 mEq/L (22-28); Analyzer IN Cardio OR; Base Excess (BEa) -2.1 mEq/L (-2.0 to +3.0); CO2 Tension 44.2 mmHg (35.0-45.0); Calcium, Ionized (arterial) 1.17 mmol/L (1.12-1.30); Carboxyhemoglobin (COHb) 0.4 gm% (0.0-3.0); Hemoglobin (Hb) 11.1 g/dL (14.0-18.0); O2 Tension (PaO2), arterial 233.2 mmHg (> 70.0); Potassium - ABG Lab 3.74 mmol/L (3.70-5.30); Puncture Site Arterial Line; pH, Arterial 7.35 (7.35-7.45)
[2021-08-28 14:23] LABS: Puncture Site Arterial Line
[2021-08-28 14:23] LABS: Puncture Site Arterial Line
[2021-08-28 14:24] LABS: Puncture Site Arterial Line
[2021-08-28 14:24] LABS: Puncture Site Arterial Line
[2021-08-28 14:25] LABS: Puncture Site Arterial Line
[2021-08-28] MEDS: traMADol HCl 50 MG TAB PO PRN (17:43)
[2021-08-28] MEDS: Atorvastatin Calcium 40 MG TAB PO SCH (21:35)
[2021-08-28] MEDS ORDERED: Diltiazem HCl 125 MG, Admixture Fee 1 EACH in Sodium Chloride 0.9% 100 ML IVPB SCH (23:45)
[2021-08-28] MEDS ORDERED: Digoxin 0.5 MG/2 ML AMP SLOW IVP SCH (23:45)
[2021-08-29] MEDS: Fenofibrate Nanocrystallized 145 MG TAB PO SCH (09:55)
[2021-08-29] MEDS: Tamsulosin HCl 0.4 MG CAP PO SCH (09:55)
[2021-08-29] MEDS: Cyanocobalamin (Vitamin B-12) 1,000 MCG TAB PO SCH (09:56)
[2021-08-29] MEDS ORDERED: Amiodarone 200 MG TAB PO SCH ×2 (09:56→10:00)
[2021-08-29] MEDS: Escitalopram Oxalate 20 mg Tablet PO SCH (09:56)
[2021-08-29] MEDS: Potassium Chloride 10 MEQ TAB PO SCH (09:56)
[2021-08-29] MEDS: Glimepiride 4 MG TAB PO SCH (09:56)
[2021-08-29] MEDS: Finasteride 5 MG TAB PO SCH (09:57)
[2021-08-29] MEDS: Lisinopril 5 MG TAB PO SCH (09:57)
[2021-08-29] MEDS: Polyethylene Glycol 3350 17 GM Packet PO SCH (09:59)
[2021-08-29] MEDS: Enoxaparin Sodium 40 MG/0.4 ML SYRINGE SC SCH ×2 (09:59→21:09)
[2021-08-29] MEDS: Metoprolol Tartrate 25 MG TAB PO SCH ×2 (10:01→21:09)
[2021-08-29] MEDS: Aspirin 325 mg Enteric Coated Tablet PO SCH (10:21)
[2021-08-29] MEDS: HumaLOG 300 UNITS/3 ML VIAL SC PRN ×2 (12:35→17:19)
[2021-08-29] MEDS: Amiodarone 200 MG TAB PO SCH ×2 (17:25→21:08)
[2021-08-29] MEDS: Atorvastatin Calcium 40 MG TAB PO SCH (21:08)
[2021-08-29] MEDS: traMADol HCl 50 MG TAB PO PRN (22:55)
[2021-08-30] MEDS: Enoxaparin Sodium 40 MG/0.4 ML SYRINGE SC SCH ×2 (08:28→20:15)
[2021-08-30] MEDS: Potassium Chloride 10 MEQ TAB PO SCH (08:29)
[2021-08-30] MEDS: Glimepiride 4 MG TAB PO SCH (08:29)
[2021-08-30] MEDS: Aspirin 325 mg Enteric Coated Tablet PO SCH (08:30)
[2021-08-30] MEDS: Cyanocobalamin (Vitamin B-12) 1,000 MCG TAB PO SCH (08:30)
[2021-08-30] MEDS: Tamsulosin HCl 0.4 MG CAP PO SCH (08:30)
[2021-08-30] MEDS: Amiodarone 200 MG TAB PO SCH ×3 (08:30→20:15)
[2021-08-30] MEDS: Lisinopril 5 MG TAB PO SCH (08:30)
[2021-08-30] MEDS: Escitalopram Oxalate 20 mg Tablet PO SCH (08:31)
[2021-08-30] MEDS: Fenofibrate Nanocrystallized 145 MG TAB PO SCH (08:31)
[2021-08-30] MEDS: Finasteride 5 MG TAB PO SCH (08:32)
[2021-08-30] MEDS: Polyethylene Glycol 3350 17 GM Packet PO SCH (08:32)
[2021-08-30] MEDS: Metoprolol Tartrate 25 MG TAB PO SCH ×2 (08:32→20:15)
[2021-08-30] MEDS: Atorvastatin Calcium 40 MG TAB PO SCH (20:15)
[2021-08-30] MEDS: traMADol HCl 50 MG TAB PO PRN (23:41)
[2021-08-31] MEDS ORDERED: Amiodarone 200 MG TAB PO SCH ×2 (08:45→18:00)
[2021-08-31] MEDS: Glimepiride 4 MG TAB PO SCH (09:34)
[2021-08-31] MEDS: Enoxaparin Sodium 40 MG/0.4 ML SYRINGE SC SCH (09:34)
[2021-08-31] MEDS: Potassium Chloride 10 MEQ TAB PO SCH (09:34)
[2021-08-31] MEDS: Aspirin 325 mg Enteric Coated Tablet PO SCH (09:35)
[2021-08-31] MEDS: Tamsulosin HCl 0.4 MG CAP PO SCH (09:35)
[2021-08-31] MEDS: Metoprolol Tartrate 25 MG TAB PO SCH (09:35)
[2021-08-31] MEDS: Cyanocobalamin (Vitamin B-12) 1,000 MCG TAB PO SCH (09:35)
[2021-08-31] MEDS: Fenofibrate Nanocrystallized 145 MG TAB PO SCH (09:35)
[2021-08-31] MEDS: Polyethylene Glycol 3350 17 GM Packet PO SCH (09:36)
[2021-08-31] MEDS: Lisinopril 5 MG TAB PO SCH (09:36)
[2021-08-31] MEDS: Finasteride 5 MG TAB PO SCH (09:36)
[2021-08-31] MEDS: Escitalopram Oxalate 20 mg Tablet PO SCH (09:36)
[2021-08-31 11:58] VITALS: BP 132/65; TEMP 98.6
== END 2021-08-31 12:45 | disposition home or self-care (01) | DRG 234 ==
LOC: SURG A 08-25 05:37 → CCU 08-25 10:34 → 2NO 08-26 14:33
PROVIDERS: ADMIT Thoracic Surgery (Cardiothoracic Vascular Surgery); ATTEND Thoracic Surgery (Cardiothoracic Vascular Surgery)
PROC: 021 Heart and Great Vessels, Bypass (ICD-10-PCS; principal; 2021-08-25)
PROC: 025S0ZZ Destruction of Right Pulmonary Vein, Open Approach (ICD-10-PCS; 2021-08-25)
PROC: 06BQ4ZZ Excision of Left Saphenous Vein, Percutaneous Endoscopic Approach (ICD-10-PCS; 2021-08-25)
PROC: 5A1221Z Performance of Cardiac Output, Continuous (ICD-10-PCS; 2021-08-25)
PROC: 02L70ZK Occlusion of Left Atrial Appendage, Open Approach (ICD-10-PCS; 2021-08-25)
DX: I25.10 Atherosclerotic heart disease of native coronary artery without angina pectoris (principal); I47.1 Supraventricular tachycardia; Z20.822 Contact with and (suspected) exposure to COVID-19; I48.0 Paroxysmal atrial fibrillation; G89.29 Other chronic pain; M54.9 Dorsalgia, unspecified; Z96.651 Presence of right artificial knee joint; I10 Essential (primary) hypertension; E78.5 Hyperlipidemia, unspecified; M10.9 Gout, unspecified; F32.A Depression, unspecified; F41.9 Anxiety disorder, unspecified; M43.16 Spondylolisthesis, lumbar region; Z79.01 Long term (current) use of anticoagulants; Z90.89 Acquired absence of other organs; Z98.41 Cataract extraction status, right eye; Z98.42 Cataract extraction status, left eye; Z87.891 Personal history of nicotine dependence
CPT/HCPCS: 36416; 36430; 71045; 71046; 80048; 82805; 85025; 85027; 85610; 85730; 86850; 86900; 86901; 90471; 90662; 93005; 93010; 93798; 94002; 94150; G0008; J0360; J0690; J1160; J1642; J1644; J1650; J1815; J1885; J2001; J2150; J2250; J2270; J2405; J2440; J2704; J2720; J3010; J3370; J3475; J3480; J3490; J7050; J7120; P9045; S0017; S0028; U0003; U0005

== ENCOUNTER 2021-08-22 08:06 | Outpatient (CLI) | payer MEDICARE | END 2021-08-22 08:07 | disposition home or self-care (01) | LOC: LABBT 08:06 | PROVIDERS: ATTEND Thoracic Surgery (Cardiothoracic Vascular Surgery) | DX: Z01.818 Encounter for other preprocedural examination (principal); Z20.822 Contact with and (suspected) exposure to COVID-19 | CPT/HCPCS: 71046; 80048; 85027; 86850; 86900; 86901; U0003; U0005 ==

== ENCOUNTER 2021-12-22 08:58 | Outpatient (CLI) | payer MEDICARE | END 2021-12-22 08:59 | disposition home or self-care (01) | LOC: BICMAMMO 08:58 | PROVIDERS: ATTEND Family Medicine | DX: Z13.820 Encounter for screening for osteoporosis (principal); M48.061 Spinal stenosis, lumbar region without neurogenic claudication | CPT/HCPCS: 77080 ==

== ENCOUNTER 2022-05-09 11:04 | Outpatient (CLI) | payer MEDICARE ==
[~2022-05-09 11:04] MED LIST changes: +Gadobenate Dimeglumine 529 MG/1 ML (20ML VIAL) ONE; -Iopamidol-370 76% 500 ML 1 ML ONE
== END 2022-05-09 11:05 | disposition home or self-care (01) ==
LOC: BICMRI 11:04
PROVIDERS: ATTEND Specialist
DX: R42 Dizziness and giddiness (principal); R90.82 White matter disease, unspecified
CPT/HCPCS: 70553; 82565; A9577

== ENCOUNTER 2023-10-09 11:22 | Outpatient (CLI) | payer MEDICARE ==
[2023-10-09 13:58] LABS: Hematocrit 33.9 % (38.8-50.0); Hemoglobin 11.1 g/dL (13.5-17.5); Mean Corpuscular HGB CONC 32.7 g/dL (32.0-36.0); Mean Corpuscular Hemoglobin 27.5 pg (27.0-33.0); Mean Corpuscular Volume 83.9 fl (81.2-95.1); Mean Platelet Volume 12.4 fl (7.4-10.4); Platelet Count 166 10x3/uL (150-450); RBC Distribution Width 12.9 % (11.5-14.5); Red Blood Cell (RBC) Count 4.04 10x6/uL (4.32-5.72); White Blood Cell (WBC) Count 3.1 10x3/uL (3.5-10.5)
[2023-10-09 14:18] LABS: Anion Gap 13 mmol/L (10-20); BUN (Urea Nitrogen) 26 mg/dL (8.4-25.7); Calc. Creatinine Clearance 0 mL/min (70-130); Calcium 9.5 mg/dL (7.8-10.44); Carbon Dioxide 22 mmol/L (23-31); Chloride 109 mmol/L (98-107); Estimated GFR 80; Glucose 128 mg/dL (83-110); Potassium 4.6 mmol/L (3.5-5.1); Sodium 139 mmol/L (136-145)
== END 2023-10-09 11:23 | disposition home or self-care (01) ==
LOC: LABBT 11:22
PROVIDERS: ATTEND Neurological Surgery
DX: Z01.818 Encounter for other preprocedural examination (principal); M54.16 Radiculopathy, lumbar region
CPT/HCPCS: 80048; 85027; 93005; 93010

== ENCOUNTER 2023-10-14 08:41 | Day surgery (SDC) | payer MEDICARE ==
[2023-10-09 12:39] VITALS: BMI 26.2
[2023-10-14] MEDS ORDERED: Vancomycin 1 GM VIAL ONE (10:14)
[2023-10-14] MEDS ORDERED: PROPOFOL 20 ML ONE (10:21)
[2023-10-14] MEDS ORDERED: Dexamethasone 4 mg/ml Vial ONE (10:22)
[2023-10-14] MEDS ORDERED: Rocuronium Bromide 10 MG/ML (10ML VIAL) ONE ×2 (10:22→11:00)
[2023-10-14] MEDS ORDERED: Ondansetron PF 4 MG/2 ML Vial ONE (10:22)
[2023-10-14] MEDS ORDERED: Lidocaine 1% PF 5 ML VIAL ONE ×2 (10:22→11:00)
[2023-10-14] MEDS ORDERED: ePHEDrine Sulfate 50 MG/10 ML VIAL ONE (10:24)
[2023-10-14] MEDS ORDERED: fentaNYL PF 100 MCG/2 ML SYRINGE ONE (10:24)
[2023-10-14] MEDS ORDERED: PHENYLEPHRINE-NS 100 MCG/ML 10 ML SYRINGE ONE (10:25)
[2023-10-14] MEDS ORDERED: Sodium Chloride 0.9% 100 ML ONE (10:36)
[2023-10-14] MEDS ORDERED: CEFAZOLIN 2 GM VIAL ONE (10:36)
[2023-10-14] MEDS ORDERED: PROPOFOL 200 MG/20 ML VIAL ONE (11:00)
[2023-10-14] MEDS ORDERED: SUGAMMADEX SODIUM 200 MG/2 ML VIAL ONE (11:24)
[2023-10-14] MEDS ORDERED: fentaNYL 50 mcg/mL 1 mL Vial ONE ×3 (12:22→13:50)
[2023-10-14] MEDS ORDERED: Cyclobenzaprine 10 MG TAB ONE (12:41)
[2023-10-14] MEDS ORDERED: HYDROcodone/Acetaminophen 5/325 mg Tablet ONE (17:30)
== END 2023-10-14 17:45 | disposition home or self-care (01) ==
LOC: SDC 08:41
PROVIDERS: ATTEND Neurological Surgery
PROC: 01NB0ZZ Release Lumbar Nerve, Open Approach (ICD-10-PCS; principal; 2023-10-14)
DX: M51.16 Intervertebral disc disorders with radiculopathy, lumbar region (principal); E11.9 Type 2 diabetes mellitus without complications; M19.90 Unspecified osteoarthritis, unspecified site; Z79.84 Long term (current) use of oral hypoglycemic drugs; Z95.1 Presence of aortocoronary bypass graft; Z98.1 Arthrodesis status; Z90.89 Acquired absence of other organs; Z96.651 Presence of right artificial knee joint; Z98.49 Cataract extraction status, unspecified eye
CPT/HCPCS: 63030; C1713; J3010; J1100; J2405; J2704; J3370; J3490

== ENCOUNTER 2025-07-23 09:29 | Outpatient (CLI) | payer MEDICARE | END 2025-07-23 09:30 | disposition home or self-care (01) | LOC: SCSMRI 09:29 | PROVIDERS: ATTEND Specialist | DX: G50.8 Other disorders of trigeminal nerve (principal); I67.82 Cerebral ischemia; K83.09 Other cholangitis | CPT/HCPCS: 70553; 76376 ==